=== PATIENT | female | born 1975 | race American Indian/Alaskan Native ===

== ENCOUNTER 2020-01-05 00:44 | Emergency (ER) | payer SELFPAY ==
[2020-01-05 01:55] LABS: Hematocrit 37.5 % (30.3-42.9); Hemoglobin 12.4 gm/dl (10.1-14.3); Mean Corpuscular HGB Conc 33 % (30-34); Mean Corpuscular Volume 107 fl (79-97); Platelet Count 119 K/mm3 (140-440); Red Cell Distribution Width 15.3 % (13.2-15.2)
[2020-01-05 02:12] LABS: Alanine Aminotransferase 22 units/L (7-56); Albumin 5.1 g/dL (3.9-5); BUN/Creatinine Ratio 13; Blood Urea Nitrogen 9 mg/dL (7-17); Calcium 9.9 mg/dL (8.4-10.2); Hemolysis Index 6
[2020-01-05 03:17] LABS: Bilirubin,Urine NEG (Negative); Blood,Urine SM (Negative); Color,Urine Yellow (Yellow); Mucus,Urine FEW /HPF; Urobilinogen,Urine < 2.0 mg/dL (<2.0)
[2020-01-05 03:31] LABS: HCG Qualitative,Urine Negative (Negative)
--- NOTE | 2020-01-05 03:38 | XRay Report ---
{null, CHEST 2 VIEWS INDICATION / CLINICAL INFORMATION: cp and sob. COMPARISON: None available. FINDINGS: SUPPORT DEVICES: None. HEART / MEDIASTINUM: No significant abnormality. LUNGS / PLEURA: No significant pulmonary or pleural abnormality. .No pneumothorax. ADDITIONAL FINDINGS: No significant additional findings. IMPRESSION: 1. No acute findings. Signer Name: Bigg Sloan MD Signed: 01/05/2020 3:34 AM Workstation Name: [id number] }
[2020-01-05 05:06] VITALS: BP 187/103
--- NOTE | 2020-01-05 05:30 | Emergency Department Report ---
{null, ED General Adult HPI - General Chief complaint: Abdominal Pain Stated complaint: RAPID HEART RATE CHILLS FEVER OFF BALANCE Time Seen by Provider: 01/05/20 02:34 Source: patient Mode of arrival: Ambulatory Limitations: No Limitations - Related Data Previous Rx's Medication Instructions Recorded Last Taken Type Ondansetron [Zofran Odt] 4 mg PO Q4-6H PRN #20 [facility] 10/28/13 Unknown Rx Ondansetron [Zofran Odt] 4 mg PO Q8HR #20 tab[facility] 01/05/20 Unknown Rx amLODIPine 5 mg PO DAILY #20 tab 01/05/20 Unknown Rx Allergies Allergy/AdvReac Type Severity Reaction Status Date / Time No Known Allergies Allergy Unverified 10/28/13 14:52 ED Review of Systems ROS: Stated complaint: RAPID HEART RATE CHILLS FEVER OFF BALANCE Other details as noted in HPI Comment: All other systems reviewed and negative ED Past Medical Hx - Past Medical History Previous Medical History?: No - Surgical History Past Surgical History?: Yes Additional Surgical History: x3. tonsils - Social History Smoking Status: Never Smoker Substance Use Type: Alcohol - Medications Home Medications: Home Medications Medication Instructions Recorded Confirmed Last Taken Type Ondansetron [Zofran Odt] 4 mg PO Q4-6H PRN #20 [facility] 10/28/13 Unknown Rx Ondansetron [Zofran Odt] 4 mg PO Q8HR #20 tab[facility] 01/05/20 Unknown Rx amLODIPine 5 mg PO DAILY #20 tab 01/05/20 Unknown Rx ED Physical Exam - General Limitations: No Limitations General appearance: alert, in no apparent distress - Head Head exam: Present: atraumatic, normocephalic - Eye Eye exam: Present: normal appearance, PERRL, EOMI Pupils: Present: normal accommodation - ENT ENT exam: Present: mucous membranes moist - Neck Neck exam: Present: normal inspection - Respiratory Respiratory exam: Present: normal lung sounds bilaterally. Absent: respiratory distress - Cardiovascular Cardiovascular Exam: Present: regular rate, normal rhythm. Absent: systolic murmur, diastolic murmur, rubs, gallop - GI/Abdominal GI/Abdominal exam: Present: soft, normal bowel sounds - Extremities Exam Extremities exam: Present: normal inspection - Back Exam Back exam: Present: normal inspection - Neurological Exam Neurological exam: Present: alert, oriented X3 - Psychiatric Psychiatric exam: Present: normal affect, normal mood - Skin Skin exam: Present: warm, dry, intact, normal color. Absent: rash ED Course Vital Signs 01/05/20 01/05/20 00:46 05:06 Temperature 99.7 F H 98.7 F Pulse Rate 104 H 88 Respiratory 18 16 Rate Blood Pressure 173/113 Blood Pressure 187/103 [Right] O2 Sat by Pulse 98 100 Oximetry ED Medical Decision Making - Lab Data Result diagrams: 01/05/20 01:21 01/05/20 01:21 Critical care attestation.: If time is entered above; I have spent that time in minutes in the direct care of this critically ill patient, excluding procedure time. ED Disposition Clinical Impression: Abdominal pain, Nausea, Hypertension, Dizziness, Palpitations Disposition: - TO HOME OR SELFCARE Is pt being admited?: No Does the pt Need Aspirin: No Condition: Stable Instructions: Vertigo (ED), Abdominal Pain (ED), DASH Eating Plan (ED), Low Sodium Diet (ED), Hypertension (ED), Dizziness (ED) Prescriptions: amLODIPine 5 mg PO DAILY #20 tab Ondansetron [Zofran Odt] 4 mg PO Q8HR #20 tab.[facility]dis Referrals: [facility] [Provider Group] - 3-5 Days }
[2020-01-05] MEDS ORDERED: traMADol 50 MG TAB PO ONE (05:52)
[2020-01-05] MEDS ORDERED: IBUPROFEN 800 MG TAB ONE (05:52)
[2020-01-05] MEDS ORDERED: traMADol 50 MG TAB ONE (05:52)
[2020-01-05] MEDS ORDERED: IBUPROFEN 800 MG TAB PO ONE (05:52)
== END 2020-01-05 06:00 | disposition home or self-care (01) ==
LOC: ED 00:44
DX: R10.9 Unspecified abdominal pain (principal); R11.0 Nausea; R42 Dizziness and giddiness; R00.2 Palpitations; I10 Essential (primary) hypertension; Z79.899 Other long term (current) drug therapy
CPT/HCPCS: 36415; 71046; 80053; 81001; 81025; 82962; 85027; 93005; 93010